=== PATIENT | female | born 1970 | race Caucasian/White ===

== ENCOUNTER → 2017-10-15 12:03 | Outpatient (CLI) | payer OTHER, SELFPAY ==
--- NOTE | 2017-10-15 13:17 | NEURO ---
NCS and/or EMG Patient Report Ordering Doctor: Baldo Adams DATE OF SERVICE: 10/15/17 Shantelle Haines is a 47-year-old female presents with chief complaint of left leg pain and numbness. She presents for electrodiagnostic testing of the left lower limb. Electrodiagnostic findings: The left common peroneal nerve demonstrates normal distal latency, amplitude and conduction velocity. Normal left tibial motor response. Normal left tibial and left peroneal F-wave. Normal H reflex bilaterally. Normal sensory responses. On needle EMG, all muscles tested showed no evidence of denervation with normal motor unit action potentials. Electrodiagnostic impression: This is a normal electrodiagnostic study in the left lower limb. There is no electrodiagnostic evidence for peripheral neuropathy or lumbosacral radiculopathy. If there are any questions, please do not hesitate to contact me
[2017-10-23 10:15] LABS: HPV APTIMA, High Risk Negative (Negative)
== END ==
PROVIDERS: Family Provider Family Medicine; PCP Family Medicine; Visit Provider Family Medicine
DX: Z12.4 Encounter for screening for malignant neoplasm of cervix (principal); R20.0 Anesthesia of skin; R07.89 Other chest pain
CPT/HCPCS: 88175; 95886; 95910; G0145

== ENCOUNTER → 2017-10-29 11:59 | Outpatient (CLI) | payer OTHER, SELFPAY ==
--- NOTE | 2017-10-29 11:59 | DT_ITS ---
This patient was seen during an EMR downtime October 27, 2017 - November 03, 2017. This patient may have a combination of paper and electronic documentation or all paper documentation. All documentation is viewable within the e-chart portion of [employer] for each patient visit.
== END ==
PROVIDERS: Family Provider Family Medicine; PCP Family Medicine
DX: R07.9 Chest pain, unspecified (principal)
CPT/HCPCS: 93017

== ENCOUNTER → 2018-07-03 15:10 | Outpatient (CLI) | payer OTHER, SELFPAY ==
[2017-10-15 11:38] VITALS: BMI 28.1
--- NOTE | 2018-07-03 15:14 | BI_ITS ---
MAMMOGRAPHY - BILATERAL SCREENING REASON FOR EXAM: Female, 47 years old. Routine annual screening examination. PERTINENT HISTORY: Non-contributory. TECHNIQUE: Digital bilateral breast payam (3D mammographic acquisition) in the CC and MLO projections. 2-D mediolateral oblique (MLO) and craniocaudad (CC) views of both breasts were obtained. CAD: Full Field Digital Mammography with Computer Added Detection was performed. COMPARISON: Comparison is made with prior outside examination dated October 25, 2015. FINDINGS: Breast Composition: The breasts are heterogeneously dense, which may obscure small masses. There are no dominant masses or suspicious calcifications. Stable appearance of the bilateral axillary lymph nodes. No other significant abnormalities are identified. There has been no significant change since the prior study. BI/SCREENING MAMM (CAD), BILAT IMPRESSION: Stable bilateral screening mammogram. Yearly follow-up mammogram recommended. (A) ASSESSMENT CATEGORY: BIRADS Category 2: Benign. A letter regarding these results will be sent to the patient by the facility within 30 days. Approximately 10% of breast cancers are not detected by mammography. A normal mammogram should not delay biopsy of a clinically suspicious abnormality. [id number] Electronically Signed: Javier Ashley MD at 9:06 EST , Service support ,
== END ==
PROVIDERS: Family Provider Family Medicine; PCP Family Medicine; Referring Provider Nurse Practitioner Women's Health; Visit Provider Nurse Practitioner Women's Health
DX: Z12.31 Encounter for screening mammogram for malignant neoplasm of breast (principal)
CPT/HCPCS: 77063; 77067

== ENCOUNTER → 2018-07-15 16:56 | Outpatient (CLI) | payer OTHER, SELFPAY ==
--- NOTE | 2018-07-15 | EMB_PTH ---
PATIENT: RUBY GAYTAN IRAHEACCT #:[id number] [id number] AGE/SX: 54/F ROOM: RE07/15/[address]: HORACE Neil : 1970 BED: DIS: SPEC #: [id number] RECD: 07/15/18 16:49 STATUS: CARLOS MANUEL GORDON #: [id number] MARTHA: 07/15/18 00:[address]: [place] Arambula NP DEPT: SURGICAL PATHOLOGY RECD BY: Peña Burr ENTERED: 07/16/18 14:01 SP TYPE: ENDOM BX/C BRENDA DR: Dr. Baldo Adams MD Tissues: Endometrium, NOS Procedures: Surgery Specimen Level IV HEADER OPERATION: Endometrial biopsy PRE-OP DIAGNOSIS: Abnormal uterine bleeding TISSUE SUBMITTED: Endometrial biopsy MICROSCOPIC DIAGNOSIS Endometrium, biopsy: Polypoid fragments of endometrium with simple hyperplasia without atypia. Mild chronic endometritis. Fragments of endocervix with squamous metaplasia. Focal glandular breakdown. AM:corina 07/17/18 MICROSCOPIC DESCRIPTION Slides are reviewed. GROSS DESCRIPTION Received is one container labeled with the patient's name and not further designated. The specimen consists of multiple fragments of hemorrhagic mucoid tissue that in aggregate measure 2.5 x 1 x 0.1 cm. The specimen is totally submitted in one cassette. / SJ:corina 07/16/18 TC:5 CPT: 36986
[2018-07-15 16:22] VITALS: BMI 27.3
== END ==
PROVIDERS: Family Provider Family Medicine; PCP Family Medicine; Referring Provider Nurse Practitioner Women's Health; Visit Provider Nurse Practitioner Women's Health
DX: N93.9 Abnormal uterine and vaginal bleeding, unspecified (principal)
CPT/HCPCS: 88305

== ENCOUNTER 2018-08-27 12:57 | Day surgery (SDC) | payer OTHER, SELFPAY ==
[2018-07-15 16:22] VITALS: BMI 27.3
[2018-07-28 13:50] VITALS: BMI 27.3
[2018-08-27] VITALS (7 sets, daily range): BP systolic 118–147; BP diastolic 75–93; PULSE 60–72; RESP 16; TEMP 36.3–36.4; O2SAT 94–100; BMI 27.3
--- NOTE | 2018-08-27 08:09 | PCM.HPOB.BLA ---
- Problem List (1) Endometrial polyp Status: Acute Comment: hysteroscopic removal (2) Simple endometrial hyperplasia without atypia Status: Acute Comment: d and c hysteroscopy and iud placement History and Physical Date of Admission: 08/27/18 Intake Vital Signs 07/28/18 Body Mass Index (BMI) 27.3 07/28/18 Height 4 ft 11 in 07/28/18 Weight: 126 lb 07/28/18 Body Mass Index (BMI) 25.4 07/28/18 Blood Pressure 112/80 07/22/18 Body Mass Index (BMI) 27.3 Intake Visit Reasons: pre op D&C Chief Complaint: pre op D&C [employer] Required: No Is patient in pain?: No Allergies No Known Allergies Allergy (Verified 07/28/18 13:32) Medications multivitamin tablet 1 tab PO DAILY 07/08/18 [History Confirmed 07/28/18] omeprazole 20 mg capsule,delayed release 20 mg PO DAILY 07/08/18 [History Confirmed 07/15/18] Is last menstrual period known: No Post menopausal: No Patient : No : No PFSH Medical History Vertigo (Acute) Hyperlipidemia (Chronic) Surgical History S/P (Resolved) S/P cholecystectomy (Resolved) Family History Grandmother Diabetes Hypertension Father Stomach cancer Sister Stomach cancer Social History Smoking Status: Never smoker alcohol intake: never substance use type: does not use caffeine: No what type of physical activity do you participate in: none seatbelt use: always do you feel safe at home: Yes additional social history: - Dontrell [employer]- Byron Valdez Patient works at [employer] pre op D&C: Details: RUBY GAYTAN is a 48 year old who presents for preop appointment. her daughter is interpreting for her. she had a biopsy that showed a polyp and it showed simple hyperplasia without atypia. Female Reproductive History Questions: Metorrhagia: No Menopausal Symptoms: No night sweats Pregancy History 1 Elective abortions Hx Para 1 Spontaneous abortions Hx # Term Pregnancies Ectopic pregnancies Hx # Pregnancies Multiple births # of living children Past Pregnancies Del. Date Name GA/Weeks Outcome Route Bth Weight Infant Gen Labor Lgth Anesthesia [facility] Provider FOB Unknown Eilyn-1999 ROS Const Constitutional: Denies fatigue, night sweats, weight gain or weight loss ENT ENT: Reports system reviewed and no additional complaints, except as docu Cardio Card: Denies chest pain Resp Resp: Denies cough or dyspnea GI GI: Reports as per HPI; denies abdominal pain, constipation, nausea or vomiting : Denies nipple discharge, urinary frequency, urinary incontinence, urinary hesitancy, urinary urgency, vaginal discharge, vaginal dryness, vaginal odor or vaginal itching Musc Musc: Denies joint pain, back pain or muscle weakness Skin Skin/Breast: Denies hair loss, change in hair, dry skin, breast lump, breast pain, breast skin changes or nipple discharge Neuro Neuro: Reports system reviewed and no additional complaints, except as docu Psych Psych: Reports system reviewed and no additional complaints, except as docu Endo Endo: Denies cold intolerance, excessive sweating, heat intolerance or increased thirst [place]/Lymph Hematologic/Lymphatic: Denies easy bleeding, Denies easy bruising, Denies enlarged lymph nodes Exam Const General: cooperative, healthy appearing, comfortable, no acute distress, well developed Orientation: alert HENMT Head: normal to inspection, normocephalic Ears: hearing grossly normal bilaterally, external ears normal Nose: external nose normal, nares normal Face and sinus: normal facial exam Neck Neck: normal visual inspection, no lymphadenopathy Thyroid: thyroid normal Chest Chest palpation & inspection: normal inspection of the chest Resp Effort & Inspection: normal respiratory effort Auscultation: clear to auscultation bilaterally Cardio Rate: regular rate Rhythm: regular rhythm Heart Sounds: S1 normal, S2 normal GI Inspection: normal to inspection, non-distended Palpation: soft, no hepatosplenomegaly Musc Other: gross motor intact no deficits, full bilateral strength Skin General: no rashes or lesions noted Neuro General: alert, awake, moves all extremities, no focal motor deficits Motor: muscle tone normal throughout Extrem General: normal to inspection, no pedal edema Psych Appearance: grossly normal Mental Status: mental status grossly normal Affect: normal affect Speech and Movement: speech and movement normal Assessment & Plan Problems 1. Endometrial polyp N84.0 hysteroscopic removal 2. Simple endometrial hyperplasia without atypia N85.01 d and c hysteroscopy and iud placement Plan discussed surgical risks including risks of anesthesia, infection, bleeding, injury to bowel, bladder or blood vessels, and patient wishes to proceed with surgery. daughter interpreted. Coding Level of Care Code No Charge Diagnoses Endometrial polyp N84.0 Simple endometrial hyperplasia without atypia N85.01 UPDATE- I have seen the patient and performed any clinically relevant updates to the history and physical exam. Lili Nunez MD
[2018-08-27 13:26] LABS: Absolute Neutrophil Count 4.5 X10^3/uL (2.0-7.7); Basophil# 0.06 X10^3/uL; Basophil% 0.8 % (0-1); Eosinophil# 0.07 X10^3/uL; Eosinophils% 0.9 % (0-5); Hematocrit 41.5 % (37-47); Hemoglobin 14.3 g/dl (12.0-15.0); Lymphocyte % 36.7 % (19-41); Mean Corp Hgb Conc 34.5 g/gl (32-36); Mean Corpuscular Hgb 29.5 pg (27.0-32.0); Mean Corpuscular Volume 85.7 fL (81-99); Mean Platelet Vol. 10.2 fl (6.2-12.0); Monocyte% 5.1 % (0-10); Neutrophil # 4.46 X10^3/uL (2.7-7.7); Neutrophil % 56.4 % (47-70); Platelet Count 321 K/mm3 (150-450); RBC Distribution Width CV 13.5 % (11.6-14.6); RBC Distribution Width SD 42.2 fl (35.1-43.9); Red Blood Count 4.84 M/mm3 (4.2-5.4); White Blood Count 7.9 K/mm3 (4.4-11.0)
[2018-08-27 13:27] LABS: POSITIVE COUNT NO; POSITIVE DIFFERENTIAL NO; POSITIVE MORPHOLOGY NO
[2018-08-27 14:31] LABS: Internal QC Validated? YES +Cl - CLEAR BKGD; Pregnancy, Urine Negative Negative
--- NOTE | 2018-08-27 14:35 | EMB_PTH ---
PATIENT: RUBY GAYTAN IRAHEACCT #:[id number] LOC: [facility] [place] U#:[id number] AGE/SX: 48/F ROOM: RE08/27/[address]: Dr. Lili Nunez MD : 1970 BED: DIS: 08/27/2018 SPEC #: [id number] RECD: 08/28/18 07:54 STATUS: CARLOS MANUEL LEYVA #: [id number] MARTHA: 08/27/18 14:[address]: Lili Nunez DEPT: SURGICAL PATHOLOGY RECD BY: Mike Stein ENTERED: 08/28/18 09:53 SP TYPE: ENDOM BX/C OTHR DR: Dr. Baldo Adams MD Tissues: Endometrium, NOS Procedures: Surgery Specimen Level IV HEADER OPERATION: Hysteroscopy, D & C Symphion, IUD insertion PRE-OP DIAGNOSIS: Endometrial polyp, simple endometrial hyperplasia without atypia TISSUE SUBMITTED: Endometrial curettings MICROSCOPIC DIAGNOSIS Endometrium, curettings: Polypoid fragments of simple hyperplasia without atypia. Fragments of benign endocervix with focal cystic change. AM:corina 08/31/18 COMMENT Case has been reviewed in consultation with Dr. Briceño who concurs with the above diagnosis. IDC:SOCORRO MICROSCOPIC DESCRIPTION Slides are reviewed. GROSS DESCRIPTION Received in fixative is one container labeled with the patient's name and designated endometrial curettings. The specimen consists of multiple irregular fragments of merrill soft tissue that in aggregate measure 2.5 x 2.5 x 0.3 cm. The entire specimen is submitted in one cassette. / SOCORRO:corina 08/28/18 TC:5 CPT: 94368
--- NOTE | 2018-08-27 14:49 | PCM.OPRPT ---
Problem List (1) Endometrial polyp Status: Acute Comment: hysteroscopic removal (2) Simple endometrial hyperplasia without atypia Status: Acute Comment: d and c hysteroscopy and iud placement Report of Operation Date of Procedure: 08/27/18 Pre-Operative Diagnosis: simple hyperplasia without atypia Post-Operative Diagnosis: same Surgery/Procedure Performed:: hysteroscopic resection of lesion and mirena iud insertion Description of Surgical Findings:: large endometrial polyp/fibroid Type of Anesthesia:: Local MAC Special Medications: none Specimen's removed: endometrial pathology Drains: none Estimated Blood Loss (mL): minimal Fluids Replaced: crystalloid Description of Procedure: Patient was prepped and draped in a normal sterile fashion under MAC anesthesia. A weighted speculum was placed in the vagina and the anterior lip of the cervix was grasped with a single-tooth tenaculum. A paracervical block was placed with 1% lidocaine. Cervix was progressively dilated to allow passage of a 5 mm hysteroscope. The lining was fully visualized and noted to have a large endometrial polyp or fibroid filling up the third of the cavity. Uterine sounded to 8 cm cm. Curettage was performed using the direct visualization of the CMP on device and the endometrial pathology was removed using the resectoscope of the stent beyond device all tissue was removed, sent to pathology. All instruments were removed from the vagina and excellent hemostasis was noted. Patient was awoken and taken to recovery in stable condition. The IUD was deployed without complication at 8 cm and the strings were cut 3 cm proximal Grafts/Implants Used: none - Complications none - Admit VTE Documentation VTE Present on Admission: No VTE Mechan Device Prophylaxis: SCD's
--- NOTE | 2018-08-27 14:55 | DCINST_ITS ---
Discharge Diet: No Restrictions Discharge Activity: Return to Normal Activity, May Shower, May Take a Tub Bath Allergies/Adverse Reactions: Allergies No Known Allergies Allergy (Verified 08/27/18 13:35) Medications to take at Discharge omeprazole 20 mg capsule,delayed release 20 mg PO DAILY 07/08/18 Primary Care Physician: Baldo Adams MD [Primary Care Provider] - Test Results: Test results from this visit will be discussed in further detail at your follow- up appointment, if applicable. Please Follow Up With: Lili Nunez MD - [phone]
== END 2018-08-27 15:49 | disposition home or self-care (01) ==
LOC: SDC 12:58 → AC 12:59
PROVIDERS: Family Provider Family Medicine; PCP Family Medicine; Referring Provider Obstetrics & Gynecology; Visit Provider Obstetrics & Gynecology
PROC: 0UB98ZZ Excision of Uterus, Via Natural or Artificial Opening Endoscopic (ICD-10-PCS; CPT 58558; principal; 2018-08-27 14:20)
DX: N84.0 Polyp of corpus uteri (principal); N85.01 Benign endometrial hyperplasia; E78.5 Hyperlipidemia, unspecified; K21.9 Gastro-esophageal reflux disease without esophagitis; Z79.899 Other long term (current) drug therapy
CPT/HCPCS: 58300; 58558; 36415; 81025; 85025; 86850; 86900; 88305; J7120

== ENCOUNTER → 2019-04-19 16:52 | Outpatient (CLI) | payer OTHER, SELFPAY ==
--- NOTE | 2019-04-19 | EMB_PTH ---
PATIENT: RUBY GAYTAN IRAHEACCT #:[id number] [id number] AGE/SX: 54/F ROOM: RE04/19/[address]: Dr. Lili Nunez MD : 1970 BED: DIS: SPEC #: [id number] RECD: 04/19/19 16:51 STATUS: CARLOS MANUEL LEYVA #: [id number] MARTHA: 04/19/19 00:[address]: Lili Nunez DEPT: SURGICAL PATHOLOGY RECD BY: Krysta Killian ENTERED: 04/20/19 10:41 SP TYPE: ENDOM BX/C BRENDA DR: Dr. Baldo Adams MD Tissues: Endometrium, NOS Procedures: Surgery Specimen Level IV HEADER OPERATION: Endometrial biopsy PRE-OP DIAGNOSIS: Simple endometrial hyperplasia with out atypia TISSUE SUBMITTED: Endometrial lining MICROSCOPIC DIAGNOSIS Endometrial lining, biopsy: Scant fragments of superficial endometrial and endocervical tissue. See comment. AM:corina 04/21/19 COMMENT The specimen primarily consists of blood clots. Clinical correlation is suggested. MICROSCOPIC DESCRIPTION Slides are reviewed. GROSS DESCRIPTION Received is one container labeled with the patient's name and not further designated. The specimen consists of multiple fragments of hemorrhagic mucoid tissue that in aggregate measure 2.5 x 2 x 0.1 cm. The specimen is totally submitted in one cassette. / SJ:corina 04/20/19 TC:5 CPT: 68234
[2019-04-19 16:27] VITALS: BMI 27.6
== END ==
PROVIDERS: Family Provider Family Medicine; PCP Family Medicine; Referring Provider Obstetrics & Gynecology; Visit Provider Obstetrics & Gynecology
DX: N85.01 Benign endometrial hyperplasia (principal)
CPT/HCPCS: 88305

== ENCOUNTER → 2020-01-10 15:50 | Outpatient (CLI) | payer OTHER, SELFPAY ==
[2019-04-19 16:27] VITALS: BMI 27.6
--- NOTE | 2020-01-10 15:51 | BI_ITS ---
MAMMOGRAPHY - BILATERAL SCREENING 3-D TOMOSYNTHESIS REASON FOR EXAM: Female, 49 years old. Routine screening PERTINENT HISTORY: BILAT SCREENING - NO FAM HX - NO PREV SURG''S. TECHNIQUE: 2-D mammograms and 3-D Tomosynthesis of the breast (s) were performed. CAD was performed. COMPARISON: 07/03/2018 FINDINGS: The breast composition is heterogeneously dense that can obscure small breast masses. Scattered benign calcifications are seen. No dense spiculated masses or suspicious microcalcifications are identified. No architectural distortion is identified. There is no skin thickening or retraction. There has been no significant change since the prior study. BI/SCREEN MAMM (CAD) W/CRIS BILAT IMPRESSION: No mammographic signs of malignancy. Routine yearly mammograms recommended. ASSESSMENT CATEGORY: BIRADS Category 2: Benign. A letter regarding these results will be sent to the patient by the facility within 30 days. FOLLOW UP RECOMMENDATION: Yearly follow up mammogram recommended. (A) Approximately 10% of breast cancers are not detected by mammography. A normal mammogram should not delay biopsy of a clinically suspicious abnormality. Electronically Signed: Brandon Richards MD at 10:18 EDT , Service support ,
== END ==
PROVIDERS: PCP Family Medicine; Referring Provider Nurse Practitioner Women's Health; Visit Provider Nurse Practitioner Women's Health
DX: Z12.31 Encounter for screening mammogram for malignant neoplasm of breast (principal)
CPT/HCPCS: 77063; 77067

== ENCOUNTER → 2020-05-23 09:49 | Outpatient (CLI) | payer OTHER, SELFPAY ==
[2020-05-15 15:13] VITALS: BMI 26.4
[2020-05-16 08:39] VITALS: BMI 26.4
--- NOTE | 2020-05-23 09:54 | US_ITS ---
STUDY: ULTRASOUND BREAST - LEFT REASON FOR EXAM: Female, 49 years old. LT RETROAREOLAR SWEELLING TECHNIQUE: Axial and longitudinal images of the LEFT breast were performed with a high resolution ultrasound transducer. # OF IMAGES: 49 COMPARISON: None. FINDINGS: LEFT Breast: There is thickening and increased echogenicity of the subcutaneous fat in the retroareolar region suggesting edema. There is mild ductal dilatation in the retroareolar region. There is no abnormal soft tissue tissue mass. There is no cyst formation. US/Breast Limited Unilateral IMPRESSION: There is thickening and increased echogenicity of the subcutaneous fat in the retroareolar region suggesting edema. Further evaluation by MRI may be helpful to exclude a neoplastic process. ASSESSMENT CATEGORY: BIRADS Category 0: Incomplete. Need additional imaging evaluation. A letter regarding these results will be sent to the patient by the facility within 30 days. Electronically Signed: Av Kaplan, at 14:47 EST Tel , Service support ,
--- NOTE | 2020-05-23 09:54 | BI_ITS ---
MAMMOGRAPHY - UNILATERAL DIAGNOSTIC: LEFT BREAST REASON FOR EXAM: Female, 49 years old. LT BREAST AREOLAR SWELLING AND DISCOLORATION PERTINENT HISTORY: Non-contributory. TECHNIQUE: Digital unilateral breast payam (3D mammographic acquisition) in the CC and MLO projections. 2-D mediolateral oblique (MLO) and craniocaudad (CC) views of both breasts were obtained. CAD: Full Field Digital Mammography with Computer Added Detection was performed. COMPARISON: 01/10/2020 and 07/03/2018 FINDINGS: Breast Composition: The breasts are heterogeneously dense, which may obscure small masses. There is diffuse increased opacity over the right breast with periareolar skin thickening suggesting nonspecific edema further evaluation by MRI may be warranted to exclude a malignancy. There are no dominant masses or suspicious calcifications. No other significant abnormalities are identified. BI/DIAG MAMM W/CAD, UNILAT IMPRESSION: There is diffuse increased opacity over the right breast with periareolar skin thickening suggesting nonspecific edema further evaluation by MRI may be warranted to exclude a malignancy. ASSESSMENT CATEGORY: BIRADS Category 0: Incomplete. Need additional imaging evaluation. A letter regarding these results will be sent to the patient by the facility within 30 days. Approximately 10% of breast cancers are not detected by mammography. A normal mammogram should not delay biopsy of a clinically suspicious abnormality. Electronically Signed: Av Kaplan, at 14:56 EST Tel , Service support ,
== END ==
PROVIDERS: PCP Family Medicine; Referring Provider Nurse Practitioner Women's Health; Visit Provider Nurse Practitioner Women's Health
DX: N64.4 Mastodynia (principal)
CPT/HCPCS: 76642; 77061; 77065; G0279

== ENCOUNTER → 2020-05-24 | Outpatient (CLI) | payer OTHER, SELFPAY ==
--- NOTE | 2020-05-24 13:10 | BRBX_PTH ---
PATIENT: RUBY GAYTAN IRAHEACCT #:[id number] [facility] U#:[id number] AGE/SX: 49/F ROOM: RE05/24/[address]: Dr. Arlene Calix MD : 1970 BED: DIS: 05/24/2020 SPEC #: [id number] RECD: 05/24/20 14:44 STATUS: CARLOS MANUEL REQ #: [id number] MARTHA: 05/24/20 13:[address]: Arlene Calix DEPT: SURGICAL PATHOLOGY RECD BY: Krysta Killian ENTERED: 05/25/20 06:54 SP TYPE: BREAST BX OTHR DR: Dr. Baldo Adams MD Tissues: Left breast, NOS Procedures: Surgery Specimen Level IV HEADER OPERATION: Punch biopsy left breast PRE-OP DIAGNOSIS: Edema of retroareolar tissue on ultrasound; thickening of skin TISSUE SUBMITTED: Left breast 8 o'clock adjacent to areola ISCHEMIC TIME: 1 minute FIXATION TIME: 102.5 hours MICROSCOPIC DIAGNOSIS Skin and soft tissue, left breast, punch biopsy: Mild chronic dermal/perivascular inflammation. No evidence of malignancy. AM:corina 05/29/2020 MICROSCOPIC DESCRIPTION Slides are reviewed. GROSS DESCRIPTION Received in fixative is one container labeled with the patient's name and designated left breast. The specimen consists of a light merrill punch biopsy of skin measuring 0.7 cm in length and 0.3 cm in average diameter. The specimen is submitted in its entirety in one cassette. / AM:corina 05/25/20 TC:3 CPT: 81175
== END | disposition home or self-care (01) ==
LOC: LABSPEC 14:51
PROVIDERS: PCP Family Medicine; Visit Provider Surgery
DX: R23.4 Changes in skin texture (principal)
CPT/HCPCS: 88305

== ENCOUNTER → 2020-06-02 12:20 | Outpatient (CLI) | payer OTHER, SELFPAY ==
[2020-05-16 08:39] VITALS: BMI 26.4
--- NOTE | 2020-06-02 12:35 | MRI_ITS ---
STUDY: BILATERAL BREAST MR WITHOUT AND WITH CONTRAST REASON FOR EXAM: Female, 49 years old. Left retroareolar swelling. Inflammatory changes on left breast biopsy 05/24/2020. Increased echogenicity of the soft tissues on left breast ultrasound. TECHNIQUE: Multi-sequence multi-echo imaging of both breasts was performed with a dedicated breast coil. T1-weighted and T2-weighted images were performed before the administration of contrast. T1-weighted images were also performed after the administration of 11ml Dotarem intravenously without complications. COMPARISON: Mammograms dated 07/03/2018 and 01/10/2020. Left diagnostic mammogram dated 05/23/2020 and left breast ultrasound dated 05/14/2020... FINDINGS: RIGHT BREAST: The breast tissue is heterogeneously dense with minimal background enhancement. There are no abnormal enhancing masses or areas of non-mass enhancement in the right breast. LEFT BREAST: The breast tissue is heterogeneously dense with minimal background enhancement. There are no abnormal enhancing masses or areas of non-mass enhancement in the left breast. There are no enlarged or abnormal lymph nodes. There is no abnormality in the visualized regions of the chest or liver. MRI/Breast Bilateral W/O and W IMPRESSION: No abnormality in either breast. Yearly follow-up mammogram recommended. CATEGORY: BIRADS Category 2: Benign. A letter regarding these results will be sent to the patient by the facility within 30 days. Electronically Signed: Oleksandr Eaton MD at 15:18 EST , Service support ,
== END ==
PROVIDERS: PCP Family Medicine; Referring Provider Surgery; Visit Provider Surgery
DX: R92.8 Other abnormal and inconclusive findings on diagnostic imaging of breast (principal); N64.59 Other signs and symptoms in breast; N63.42 Unspecified lump in left breast, subareolar
CPT/HCPCS: 77049; A9575; A4216; C8908

== ENCOUNTER 2021-07-27 08:57 | Outpatient (CLI) | payer OTHER, SELFPAY ==
--- NOTE | 2021-07-27 09:01 | RAD_ITS ---
STUDY: X-RAY - ESOPHAGUS (BARIUM SWALLOW) WITH FLUOROSCOPY REASON FOR EXAM: Female, 51 years old. DYSPHAGIA TECHNIQUE: 12 view(s) of the esophagus were obtained following swallowing of barium. FLUOROSCOPY TIME (if supplied): (23 seconds) minutes/seconds COMPARISON: None. FINDINGS: There is no demonstrated esophageal foreign body. There is no demonstrated stricture or mucosal abnormality. Normal gastroesophageal junction, without a demonstrated hiatal hernia. The patient ingested a 12 mm tablet of barium without any difficulty. Normal visualized aortic arch and descending thoracic aorta. Normal visualized pulmonary parenchyma. Normal visualized osseous structures of the thorax. RAD/Esophagus Dual Contrast IMPRESSION: Normal plain film x-ray examination (barium swallow) of the esophagus. Electronically Signed: Javier Ashley MD at 15:13 EST ,
[2021-08-01 13:21] LABS: HPV APTIMA, High Risk Negative (Negative)
== END 2021-07-27 23:59 | disposition home or self-care (01) ==
LOC: RAD 09:00
PROVIDERS: Obstetrics & Gynecology; PCP Family Medicine; Referring Provider Otolaryngology Otolaryngology/Facial Plastic Surgery; Visit Provider Otolaryngology Otolaryngology/Facial Plastic Surgery
DX: R13.10 Dysphagia, unspecified (principal); Z12.4 Encounter for screening for malignant neoplasm of cervix; Z78.0 Asymptomatic menopausal state
CPT/HCPCS: 74220; 74221; 87624; 88175; G0145

== ENCOUNTER → 2021-11-09 | Outpatient (CLI) | payer OTHER, SELFPAY ==
--- NOTE | 2021-11-09 | EMB_PTH ---
PATIENT: RUBY GAYTAN IRAHEACCT #:[id number] [id number] AGE/SX: 51/F ROOM: RE11/09/[address]: Dr. Deloers Torre DO : 1970 BED: DIS: 11/09/2021 SPEC #: [id number] RECD: 11/09/21 16:13 STATUS: CARLOS MANUEL ALVAArnulfo #: [id number] MARTHA: 11/09/21 00:[address]: Delores Torre DEPT: SURGICAL PATHOLOGY RECD BY: Peña Burr ENTERED: 11/12/21 08:50 SP TYPE: ENDOM BX/C BRENDA DR: Dr. Baldo Adams MD Tissues: Endometrium, NOS Procedures: Surgery Specimen Level IV HEADER OPERATION: Endometrial biopsy PRE-OP DIAGNOSIS: Simple endometrial hyperplasia without atypia TISSUE SUBMITTED: Endometrial lining MICROSCOPIC DIAGNOSIS Endometrium, biopsy: Rare strips of benign superficial glandular mucosa. Fragment of endocervix with squamous metaplasia and chronic inflammation. AM:corina 11/13/2021 MICROSCOPIC DESCRIPTION Slides are reviewed. GROSS DESCRIPTION Received is one container labeled with the patient's name and not further designated. The specimen consists of multiple irregular fragments of merrill mucoid tissue that in aggregate measure 2 x 0.5 x 0.1 cm. The specimen is totally submitted in one cassette. / SJ:corina 11/12/2021 TC:3 CPT: 18804
== END | disposition home or self-care (01) ==
LOC: LABSPEC 16:21
PROVIDERS: PCP Family Medicine; Referring Provider Obstetrics & Gynecology; Visit Provider Obstetrics & Gynecology
DX: N85.01 Benign endometrial hyperplasia (principal)
CPT/HCPCS: 88305

== ENCOUNTER → 2022-11-07 | Outpatient (CLI) | payer OTHER, SELFPAY ==
--- NOTE | 2022-11-07 15:51 | BI_ITS ---
MAMMOGRAPHY - BILATERAL SCREENING REASON FOR EXAM: Female, 52 years old. Routine annual screening examination. PERTINENT HISTORY: Non-contributory. TECHNIQUE: Digital bilateral breast cris (3D mammographic acquisition) in the CC and MLO projections. 2-D mediolateral oblique (MLO) and craniocaudad (CC) views of both breasts were obtained. CAD: Full Field Digital Mammography with Computer Added Detection was performed. COMPARISON: Comparison is made with prior outside examination dated March 01, 2022. FINDINGS: Breast Composition: The breasts are heterogeneously dense, which may obscure small masses. There are no dominant masses or suspicious calcifications. Stable small benign-appearing bilateral axillary lymph nodes. No other significant abnormalities are identified. There has been no significant change since the prior study. BI/SCRN MAMM (CAD)W/CRIS BILAT IMPRESSION: Stable bilateral screening mammogram. Yearly follow-up mammogram recommended. (A) ASSESSMENT CATEGORY: BIRADS Category 2: Benign. A letter regarding these results will be sent to the patient by the facility within 30 days. Approximately 10% of breast cancers are not detected by mammography. A normal mammogram should not delay biopsy of a clinically suspicious abnormality. [id number] Electronically Signed: Javier Ashley MD at 8:30 EDT ,
== END | disposition home or self-care (01) ==
LOC: OPBI 15:50
PROVIDERS: PCP Family Medicine; Referring Provider Nurse Practitioner Women's Health; Visit Provider Nurse Practitioner Women's Health
DX: Z12.31 Encounter for screening mammogram for malignant neoplasm of breast (principal)
CPT/HCPCS: 77063; 77067

== ENCOUNTER → 2023-04-14 | Outpatient (CLI) | payer OTHER, SELFPAY | END | disposition home or self-care (01) | LOC: LABSPEC 15:41 | PROVIDERS: PCP Family Medicine; Referring Provider Otolaryngology Otolaryngology/Facial Plastic Surgery; Visit Provider Otolaryngology Otolaryngology/Facial Plastic Surgery | DX: J02.9 Acute pharyngitis, unspecified (principal) | CPT/HCPCS: 87070 ==

== ENCOUNTER → 2023-12-22 | Outpatient (CLI) | payer OTHER, SELFPAY ==
--- NOTE | 2023-12-22 15:17 | BI_ITS ---
MAMMOGRAPHY - BILATERAL SCREENING REASON FOR EXAM: Female, 53 years old. Routine annual screening examination. PERTINENT HISTORY: Non-contributory. TECHNIQUE: Digital bilateral breast cris (3D mammographic acquisition) in the CC and MLO projections. 2-D mediolateral oblique (MLO) and craniocaudad (CC) views of both breasts were obtained. CAD: Full Field Digital Mammography with Computer Added Detection was performed. COMPARISON: Comparison is made with prior study dated November 07, 2022 and May 23, 2020. FINDINGS: Breast Composition: The breasts are heterogeneously dense, which may obscure small masses. There are no dominant masses or suspicious calcifications. Stable small benign-appearing bilateral axillary lymph nodes. No other significant abnormalities are identified. There has been no significant change since the prior study. BI/SCRN MAMM (CAD)W/CRIS BILAT IMPRESSION: Stable bilateral screening mammogram. Yearly follow-up mammogram recommended. (A) ASSESSMENT CATEGORY: BIRADS Category 2: Benign. A letter regarding these results will be sent to the patient by the facility within 30 days. Approximately 10% of breast cancers are not detected by mammography. A normal mammogram should not delay biopsy of a clinically suspicious abnormality. [id number] Electronically Signed: Javier Ashley MD at 8:15 EDT ,
== END | disposition home or self-care (01) ==
LOC: OPBI 15:17
PROVIDERS: PCP Family Medicine; Referring Provider Nurse Practitioner Women's Health; Visit Provider Nurse Practitioner Women's Health
DX: Z12.31 Encounter for screening mammogram for malignant neoplasm of breast (principal)
CPT/HCPCS: 77063; 77067